=== PATIENT | female | born 1940 | race Caucasian/White ===

== ENCOUNTER 2017-11-28 13:43 | Emergency (ER) | payer MEDICARE ==
[2017-11-28 15:08] VITALS: BP 134/64
--- NOTE | 2017-11-28 15:54 | RAD ---
HISTORY: Cough COMPARISONS: March 04, 2007 VIEWS: 4: Frontal dual-energy and lateral views of the chest. FINDINGS: CARDIOMEDIASTINAL SILHOUETTE: The cardiomediastinal silhouette is normal. JESSICA: The jessica are normal. PLEURA: The costophrenic angles are sharp. No pleural abnormalities are noted. LUNG PARENCHYMA: The lungs are clear. ABDOMEN: The upper abdomen is clear. There is no subphrenic gas. BONES AND SOFT TISSUES: Mild degenerative changes are noted of the spine. OTHER: None. IMPRESSION: NO ACTIVE CARDIOPULMONARY DISEASE.
--- NOTE | 2017-11-28 15:59 | UC ---
Respiratory Complaint HPI - HPI Summary HPI Summary: TamieF presents with cough for three weeks. She states her primary thought she had the flu and started her on zpack which did not help. She states her cough was productive and now is dry. She denies any fever. She denies any chest pain or SOB. She denies any sore throat or sinus congestion. She denies any abdominal pain, nausea or vomiting. She has PMH of thyroid but no lung or heart issue. She denies any swelling or pain in her legs. - History of Current Complaint Chief Complaint: UCGeneralIllness Stated Complaint: chest congestion Time Seen by Provider: 11/28/17 15:31 Pain Intensity: 0 - Allergies/Home Medications Allergies/Adverse Reactions: Allergies Allergy/AdvReac Type Severity Reaction Status Date / Time No Known Allergies Allergy Verified 11/28/17 15:08 PMH/Surg Hx/FS Hx/Imm Hx Endocrine History: Hypothyroidism Cardiovascular History: Other Other Cardiovascular History: no CAD - Surgical History Surgical History: Yes Surgery Procedure, Year, and Place: APPENDIX REMOVED A CHILD. TONSILLECTOMY - Family History Known Family History: Positive: Hypertension - Social History Alcohol Use: Occasionally Substance Use Type: None Smoking Status (MU): Former Smoker When Did the Patient Quit Smoking/Using Tobacco: 20 YRS AGO Review of Systems Constitutional: Negative Respiratory: Cough Cardiovascular: Negative All Other Systems Reviewed And Are Negative: Yes Physical Exam Triage Information Reviewed: Yes Appearance: Well-Appearing Vital Signs: Initial Vital Signs Temp 98.2 F 11/28/17 15:03 Pulse 84 11/28/17 15:03 Resp 16 11/28/17 15:03 BP 134/64 11/28/17 15:03 Pulse Ox 96 11/28/17 15:03 Vital Signs Reviewed: Yes Eyes: Positive: Conjunctiva Clear ENT: Positive: Normal ENT inspection, Pharynx normal, TMs normal Neck: Positive: Supple, Nontender, No Lymphadenopathy Respiratory: Positive: Lungs clear, Normal breath sounds Cardiovascular: Positive: RRR Abdomen Description: Positive: Nontender, Soft Bowel Sounds: Positive: Present Musculoskeletal Exam: Normal Neurological Exam: Normal Psychological Exam: Normal Skin Exam: Normal UC Diagnostic Evaluation - Laboratory O2 Sat by Pulse Oximetry: 96 - Radiology Xray Interpretation: No Acute Changes Radiology Interpretation Completed By: Radiologist Respiratory Course/Dx - Course Course Of Treatment: TamieF presents with cough for three weeks. She states her primary thought she had the flu and started her on zpack which did not help. She states her cough was productive and now is dry. She denies any fever. She denies any chest pain or SOB. She denies any sore throat or sinus congestion. She denies any abdominal pain, nausea or vomiting. She has PMH of thyroid but no lung or heart issue. She denies any swelling or pain in her legs. on exam lungs CTA. chest xray normal. blood pressure in pre-htn range so will have follow up with primary. patient declined any medication. patient understand and agrees with plan. - Differential Dx/Diagnosis Differential Diagnosis/HQI/PQRI: Bronchitis, Influenza, Lower Resp Infection Provider Diagnoses: bronchitis Discharge - Discharge Plan Condition: Good Disposition: HOME Patient Education Materials: Acute Bronchitis (ED) Referrals: Lay Dougherty MD [Primary Care Provider] - Additional Instructions: Take Tylenol every 6 hours for pain Follow up with primary within 7 days Return to ED if develop any new or worsening symptoms
== END 2017-11-28 16:02 | disposition home or self-care (01) ==
LOC: UCCORT 13:43
DX: J40 Bronchitis, not specified as acute or chronic (principal); Z87.891 Personal history of nicotine dependence
CPT/HCPCS: 71046; 99211; G0463

== ENCOUNTER 2024-02-10 09:38 | Inpatient (IN) ==
[~2024-02-10 09:38] MED LIST: Metoclopramide 5 MG/ML VIAL (10 mg) IV PRN; NS 0.45% 1000 ml BAG 1,000 ML IV SCH; Naloxone 0.4 mg VIAL 0.4 mg/ml 1 ml VIAL IV PRN; Ondansetron 4 mg VIAL 2 MG/ML 2 ml VIAL IV PRN
[2024-02-10] MEDS ORDERED: ceFAZolin 2 GM PREMIX 2 GM/50 ML BAG ONE (10:20)
[2024-02-10] MEDS: Lactated Ringers 1000 ml BAG 1,000 ML IV SCH ×2 (10:38→18:38)
[2024-02-10 10:50] LABS: Rapid COVID-19 Molecular Undetected (Undetected)
[2024-02-10] MEDS ORDERED: ROPIVACAINE 5 MG/ML 30 ML BTL (0.5%) ONE ×2 (12:21)
[2024-02-10] MEDS ORDERED: fentaNYL 100 mcg/2 ml 50 MCG/ML VIAL ONE ×2 (12:21→16:38)
[2024-02-10] MEDS ORDERED: Midazolam 2 mg/2 ml VIAL 1 mg/ml 2 ml VIAL (2 mg) ONE ×2 (12:21→13:28)
[2024-02-10] MEDS ORDERED: Ropivacaine 5 MG/ML 20 ML VIAL 0.5% (100 MG) ONE (12:21)
[2024-02-10] MEDS ORDERED: Propofol 10 MG/ML 20 ML BTL ONE (13:02)
[2024-02-10] MEDS ORDERED: Magnesium Hydroxide LIQ 30 ML UDC PO PRN (14:24)
[2024-02-10] MEDS ORDERED: Ondansetron 4 mg VIAL 2 MG/ML 2 ml VIAL IV PRN (14:24)
[2024-02-10] MEDS ORDERED: Lactulose 30 ml UDC PO PRN (14:24)
[2024-02-10] MEDS ORDERED: Ondansetron ODT 4 mg TAB 4 MG TAB PO PRN (14:24)
[2024-02-10] MEDS ORDERED: Morphine 2 MG/ML SYRINGE IV PRN (14:24)
[2024-02-10] MEDS: fentaNYL 100 mcg/2 ml 50 MCG/ML VIAL IV PRN (16:44)
[2024-02-10] MEDS: Acetaminophen IV 1 GM/100ML 1,000 MG/100 ML BAG IV ONE (17:40)
[2024-02-10] MEDS: Buffered Lidocaine 1% SYRIN 1 ml INTRADERM ONE (17:41)
[2024-02-10] MEDS: Magnesium Hydroxide LIQ 30 ML UDC PO SCH (21:53)
[2024-02-10] MEDS: ceFAZolin 1 GM ADVAN 1 GM in NS 0.9% 50 ML 50 ML IVPB SCH (21:56)
[2024-02-11 05:24] LABS: Hemoglobin 11.4 g/dL (11.5-14.3); Mean Platelet Volume 7.3 fL (7.5-11.2); Platelet Count 300 10^3/uL (150-450)
[2024-02-11 06:03] LABS: Calcium 8.9 mg/dL (8.6-10.3); Creatinine, Serum 0.72 mg/dL (0.51-0.95); Potassium 4.5 mmol/L (3.5-5.0); eGFR CKD-EPI 83.4 (>60)
[2024-02-11] MEDS: Vitamin THERAPEUTIC TAB PO SCH (09:25)
[2024-02-11 11:06] VITALS: BP 127/60
== END 2024-02-11 14:35 | disposition home or self-care (01) | DRG 470 ==
LOC: AA → INTOOBSV 09:38 → AA 09:38 → SSU 18:29
PROVIDERS: ADMIT Orthopaedic Surgery Adult Reconstructive Orthopaedic Surgery; ATTEND Orthopaedic Surgery Adult Reconstructive Orthopaedic Surgery